=== PATIENT | male | born 1935 | race African-American/Black ===

== ENCOUNTER 2017-01-09 08:41 | Emergency (ER) | payer MEDICARE, OTHER ==
[~2017-01-09] VITALS: Ht 167.6 cm; Wt 77.0 kg
[~2017-01-09 08:41] MED LIST: ASPI-1159 PO; ATOR10TA PO; OMEP20CA10 PO
[2017-01-09 11:29] VITALS: BP 151/78
== END 2017-01-09 12:02 | disposition home or self-care (01) ==
LOC: ER 09:09
DX: G89.29 Other chronic pain (principal); M25.561 Pain in right knee; I10 Essential (primary) hypertension; N19 Unspecified kidney failure; Z79.82 Long term (current) use of aspirin; Z99.2 Dependence on renal dialysis
CPT/HCPCS: 73562; 93971; 99284